=== PATIENT | female | born 1980 | race Two or more races ===

== ENCOUNTER → 2019-07-16 | Day surgery (SDC) | payer OTHER ==
[~2019-07-16] VITALS: Ht 157.5 cm; Wt 74.8 kg
[~2019-07-16] MED LIST: LACTATED RINGER'S 1,000 ML IV SCH; METHYLERGONOVINE MALEATE 0.2 MG/ML AMP IM ONE; MIDAZOLAM HCL 1MG/1ML-2 ML VIAL ONE; MORPHINE SULF INJ 2 MG/ML SYRINGE 1ML IV ONE; ONDANSETRON HCL 4 MG/2 ML VIAL IV ONE; ONDANSETRON HCL 4 MG/2 ML VIAL IV PRN; OXYTOCIN IV ONE; PROPOFOL 10 MG/ML 20 ML IV ONE; RHO (D) IMMUNE GLOBULIN 300 MCG INJ IM PRN; SODIUM CHL IV ONE; SODIUM CHLORIDE 0.9% 500 ML IV ONE; SUCCINYLCHOLINE CHLORIDE 20 MG/ML 10ML VIAL IV ONE; ceFAZolin 1GM/50ML 50 ML IV ONE; ePHEDrine SULFATE 50 MG/ML AMP IV PRN; fentaNYL CITRATE 100 MCG/2 ML VL IV ONE; fentaNYL CITRATE 100 MCG/2 ML VL IV PRN; fentaNYL CITRATE 100 MCG/2 ML VL ONE; hydrALAZINE HCL 20 MG/ML VL IV PRN
[2019-07-16 13:26] LABS: Basophils # (auto) 0.1 10 ^3/uL (0-0.2); Basophils % (auto) 0.7 % (0.0-2.0); Eosinophils # (auto) 0.2 10 ^3/uL (0-0.8); Eosinophils % (auto) 1.5 % (0.0-7.0); Hematocrit 35.5 % (36.0-46.0); Hemoglobin 12.2 g/dL (12.2-16.2); Lymphocytes # (auto) 1.3 10 ^3/uL (0.4-5.4); Lymphocytes % (auto) 7.9 % (10.0-50.0); Mean Corpuscular Hemoglobin 29.7 pg (28.0-32.0); Mean Corpuscular Hgb Conc. 34.3 g/dL (32.0-36.0); Mean Corpuscular Volume 86.5 fL (80.0-100.0); Monocytes # (auto) 0.9 10 ^3/uL (0-1.3); Monocytes % (auto) 5.6 % (0.0-12.0); Neutrophils # (auto) 13.5 10 ^3/uL (1.6-8.6); Neutrophils % (auto) 84.3 % (37.0-80.0); Nucleated Red Blood Cells % 0.1 %; Platelet Count (auto) 206 10^3/uL (140-450); Red Cell Distribution Width 15.1 % (11.8-14.3)
[2019-07-16 13:44] LABS: Albumin 3.2 g/dL (3.4-5.0); Potassium 3.5 mmol/L (3.5-5.1)
[2019-07-16 13:50] LABS: BUN/Creatinine Ratio 13.9; Bilirubin, Total 0.2 mg/dL (0.2-1.0)
[2019-07-16 16:55] LABS: Urine Bacteria MOD /hpf (None Seen); Urine Blood 3+ /uL (Negative); Urine Mucus FEW (None Seen); Urine Specific Gravity 1.023 (1.001-1.035); Urine WBC 55 /hpf (0 - 5)
[2019-07-16 17:34] LABS: INR 1.01 (0.9-1.15); Partial Thromboplastin Time 21.2 sec (23.64-32.05)
[2019-07-16 19:20] VITALS: BP 105/62
== END | disposition home or self-care (01) ==
LOC: EDBD 12:27 → ER 12:27 → OR 1 12:28
PROVIDERS: ATTEND Obstetrics & Gynecology
DX: N93.8 Other specified abnormal uterine and vaginal bleeding (principal); O03.4 Incomplete spontaneous abortion without complication; Z98.890 Other specified postprocedural states; Z88.1 Allergy status to other antibiotic agents; Z88.8 Allergy status to other drugs, medicaments and biological substances
CPT/HCPCS: 36415; 59812; 76801; 80053; 81001; 84702; 85025; 85610; 85730; 88305; 88342; J0330; J0690; J2250; J2270; J2405; J2590; J2704; J3010; J7040